=== PATIENT | male | born 1995 | race Caucasian/White ===

== ENCOUNTER 2017-12-21 15:22 | Emergency (ER) | payer BC, OTHER ==
[2017-12-21 15:36] VITALS: TEMP 98.3
[2017-12-21] MEDS ORDERED: METOCLOPRAMIDE 5 MG/ML 2 ML VIAL IVP STA (16:29)
[2017-12-21] MEDS ORDERED: SODIUM CHLORIDE 0.9% 1,000 ML IV STA (16:29)
[2017-12-21] MEDS ORDERED: PANTOPRAZOLE 40 MG/10 ML VIAL IVP STA (16:29)
--- NOTE | 2017-12-21 16:32 | ED ---
Abdominal Pain HPI - General Chief Complaint: Abdominal Pain Stated Complaint: Vomiting Time Seen by Provider: 12/21/17 16:26 Source: patient, RN notes reviewed Mode of arrival: ambulatory Limitations: no limitations - History of Present Illness Initial Comments: 22-year-old male presents emergency Department chief complaint of abdominal discomfort. Patient states has been present for last 1 week with burning in his upper abdomen and chest. Patient states that he cannot eat because symptoms worsen. Patient admits to some nausea no vomiting no diarrhea no constipation he has no dysuria no hematuria. Patient does not take anything for acid reflux his had not history of GERD. Patient denies any fever, chills, back pain. Patient states that he's had no other associated symptoms or complaints. - Related Data Previous Rx's Medication Instructions Recorded Ibuprofen [Motrin] 600 mg PO Q8HR PRN #30 tab 11/16/15 Omeprazole 40 mg PO DAILY #14 capsule. 12/21/17 Allergies Allergy/AdvReac Type Severity Reaction Status Date / Time No Known Allergies Allergy Verified 12/21/17 15:36 Review of Systems ROS Statement: Those systems with pertinent positive or pertinent negative responses have been documented in the HPI. ROS Other: All systems not noted in ROS Statement are negative. Past Medical History Past Medical History: Asthma History of Any Multi-Drug Resistant Organisms: None Reported Additional Past Surgical History / Comment(s): cleft lip repair, nose Past Psychological History: No Psychological Hx Reported Smoking Status: Current every day smoker Past Alcohol Use History: None Reported Past Drug Use History: None Reported General Exam Limitations: no limitations General appearance: alert, in no apparent distress Head exam: Present: atraumatic, normocephalic, normal inspection Neck exam: Present: normal inspection. Absent: tenderness, meningismus, lymphadenopathy Respiratory exam: Present: normal lung sounds bilaterally. Absent: respiratory distress, wheezes, rales, rhonchi, stridor Cardiovascular Exam: Present: regular rate, normal rhythm, normal heart sounds. Absent: systolic murmur, diastolic murmur, rubs, gallop, clicks GI/Abdominal exam: Present: soft, tenderness (Minimal epigastric), normal bowel sounds. Absent: distended, guarding, rebound, rigid Back exam: Absent: CVA tenderness (R), CVA tenderness (L) Skin exam: Present: warm, dry, intact, normal color. Absent: rash Course Vital Signs 12/21/17 15:33 Temperature 98.3 F Pulse Rate 89 Respiratory 18 Rate Blood Pressure 145/94 O2 Sat by Pulse 98 Oximetry Medical Decision Making - Medical Decision Making 22-year-old male present emergency department for abdominal discomfort, burning sensation. Patient had lab work, ultrasound shows unremarkable. Did have some improvement after GI cocktail. Patient also has underlying gastritis and was started on omeprazole 40 mg once daily and will follow-up with PCP for recheck. Return parameters were discussed. - Lab Data Result diagrams: 12/21/17 17:00 12/21/17 17:00 Lab Results 12/21/17 12/21/17 12/21/17 Range/Units 17:00 17:00 17:00 WBC 7.1 (4.0-11.0) k/uL RBC 5.01 (4.30-5.90) m/uL Hgb 15.1 (13.0-17.5) gm/dL Hct 43.7 (39.0-53.0) % MCV 87.2 (80.0-100.0) fL MCH 30.2 (25.0-35.0) pg MCHC 34.6 (31.0-37.0) g/dL RDW 12.1 (11.5-15.5) % Plt Count 233 (150-450) k/uL Neutrophils % 53 % Lymphocytes % 36 % Monocytes % 6 % Eosinophils % 2 % Basophils % 1 % Neutrophils # 3.7 (1.3-7.7) k/uL Lymphocytes # 2.6 (1.0-4.8) k/uL Monocytes # 0.4 (0-1.0) k/uL Eosinophils # 0.2 (0-0.7) k/uL Basophils # 0.0 (0-0.2) k/uL Sodium 140 (137-145) mmol/L Potassium 4.3 (3.5-5.1) mmol/L Chloride 105 (98-107) mmol/L Carbon Dioxide 24 (22-30) mmol/L Anion Gap 11 mmol/L BUN 14 (9-20) mg/dL Creatinine 0.82 (0.66-1.25) mg/dL Est GFR (CKD-EPI)AfAm >90 (>60 ml/min/1.73 sqM) Est GFR (CKD-EPI)NonAf >90 (>60 ml/min/1.73 sqM) Glucose 116 H (74-99) mg/dL Calcium 9.8 (8.4-10.2) mg/dL Total Bilirubin 0.6 (0.2-1.3) mg/dL AST 25 (17-59) U/L ALT 21 (21-72) U/L Alkaline Phosphatase 91 (38-126) U/L Total Protein 7.4 (6.3-8.2) g/dL Albumin 4.6 (3.5-5.0) g/dL Amylase 50 (30-110) U/L Lipase 103 (23-300) U/L Urine Color Light Yellow Urine Appearance Clear (Clear) Urine pH 6.5 (5.0-8.0) Ur Specific [place] 1.008 (1.001-1.035) Urine Protein Negative (Negative) Urine Glucose (UA) Negative (Negative) Urine Ketones Negative (Negative) Urine Blood Negative (Negative) Urine Nitrite Negative (Negative) Urine Bilirubin Negative (Negative) Urine Urobilinogen 2.0 (<2.0) mg/dL Ur Leukocyte Esterase Negative (Negative) Disposition Clinical Impression: Abdominal pain, Gastritis, GERD (gastroesophageal reflux disease) Disposition: HOME SELF-CARE Condition: Stable Instructions: Gastritis (ED) Additional Instructions: Please return to the Emergency Department if symptoms worsen or any other concerns. Prescriptions: Omeprazole 40 mg PO DAILY #14 capsule.dr Is patient prescribed a controlled substance at d/c from ED?: No Referrals: Sierra Villeda MD [Primary Care Provider] - 1-2 days Time of Disposition: 17:55
[2017-12-21 17:17] LABS: Appearance,Urine Clear (Clear); Basophils % (A) 1 %; Bilirubin,Urine Negative (Negative); Blood,Urine Negative (Negative); Color,Urine Light Yellow; Eosinophils # (A) 0.2 k/uL (0-0.7); Eosinophils % (A) 2 %; Glucose,Urine (UA) Negative (Negative); HCT 43.7 % (39.0-53.0); HGB 15.1 gm/dL (13.0-17.5); Ketones,Urine Negative (Negative); Leukocyte Esterase,Urine Negative (Negative); Lymphocytes # (A) 2.6 k/uL (1.0-4.8); Lymphocytes % (A) 36 %; MCH 30.2 pg (25.0-35.0); MCHC 34.6 g/dL (31.0-37.0); MCV 87.2 fL (80.0-100.0); Mean Platelet Volume 7.9; Monocytes # (A) 0.4 k/uL (0-1.0); Monocytes % (A) 6 %; Neutrophils # (A) 3.7 k/uL (1.3-7.7); Neutrophils % (A) 53 %; Nitrite,Urine Negative (Negative); PH, Urine 6.5 (5.0-8.0); Platelet Count 233 k/uL (150-450); Protein,Urine Negative (Negative); RBC 5.01 m/uL (4.30-5.90); RDW 12.1 % (11.5-15.5); Specific Gravity,Urine 1.008 (1.001-1.035); WBC 7.1 k/uL (4.0-11.0)
[2017-12-21 17:28] LABS: ALT 21 U/L (21-72); AST 25 U/L (17-59); Albumin 4.6 g/dL (3.5-5.0); Alkaline Phosphatase 91 U/L (38-126); Amylase 50 U/L (30-110); Anion Gap 11 mmol/L; Blood Urea Nitrogen 14 mg/dL (9-20); Calcium 9.8 mg/dL (8.4-10.2); Carbon Dioxide 24 mmol/L (22-30); Chloride 105 mmol/L (98-107); Glucose 116 mg/dL (74-99); Lipase 103 U/L (23-300); Potassium 4.3 mmol/L (3.5-5.1); Sodium 140 mmol/L (137-145); Total Bilirubin 0.6 mg/dL (0.2-1.3); Total Protein 7.4 g/dL (6.3-8.2)
[2017-12-21] MEDS ORDERED: MAG HYDROX/AL HYDROX/SIMETH 30 ML, HYOSCYAMINE ELIXIR 10 ML, CIMETIDINE HCL 300 MG PO STA ×3 (17:36)
--- NOTE | 2017-12-21 17:51 | US ---
EXAMINATION TYPE: US gallbladder DATE OF EXAM: 12/21/2017 COMPARISON: CT 2016 CLINICAL HISTORY: Pain. burning sensation in abdomen EXAM MEASUREMENTS: Liver Length: 11.0 cm Gallbladder Wall: 0.2 cm CBD: 0.3 cm Right Kidney: 11.4 x 3.5 x 4.5 cm Pancreas: visualized portions wnl, partially obscured by bowel gas Liver: wnl Gallbladder: no stones see, appears contracted, wall not thickened Evidence for sonographic Grullon's sign: No CBD: wnl Right Kidney: No hydronephrosis or masses seen IMPRESSION: 1. Normal right upper quadrant abdomen ultrasound as visualized.
[2017-12-21 18:10] VITALS: BP 129/83; PULSE 86; RESP 16
== END 2017-12-21 18:15 | disposition home or self-care (01) ==
LOC: EC 15:22
DX: K21.9 Gastro-esophageal reflux disease without esophagitis (principal); K29.70 Gastritis, unspecified, without bleeding; F17.200 Nicotine dependence, unspecified, uncomplicated
CPT/HCPCS: 36415; 80053; 82150; 83690; 85025; 81003; 76705; 99284; 96374; 96375; J2765; C9113

== ENCOUNTER 2019-08-30 22:18 | Emergency (ER) | payer BC, OTHER ==
--- NOTE | 2019-08-30 22:42 | ED ---
Chest Pain HPI - General Chief Complaint: Chest Pain Stated Complaint: Chest pain Time Seen by Provider: 08/30/19 22:29 Source: patient Mode of arrival: ambulatory Limitations: no limitations - History of Present Illness Initial Comments: Patient is a 24-year-old male presenting to emergency Department with a chief complaint of chest pain. Starting early this morning after he woke up from sleep. This is mostly midsternal chest pain with some left-sided radiation and to the left upper extremity. Chest pain is reproducible with palpation and is exacerbated with full inspiration. He does report shortness of breath because he does not want to take full breaths due to the pain. Lungs are clear to auscultation. Heart is RRR. Chest x-ray is unremarkable. EKG shows sinus tachycardia. Patient is PERC +. D-dimer is negative. Patient appears to have atypical chest pain. Return parameters were thoroughly discussed patient was understanding and agreeable. Case discussed with physician. - Related Data Previous Rx's Medication Instructions Recorded Ibuprofen [Motrin] 600 mg PO Q8HR PRN #30 tab 11/16/15 Omeprazole 40 mg PO DAILY #14 capsule. 12/21/17 Allergies Allergy/AdvReac Type Severity Reaction Status Date / Time No Known Allergies Allergy Verified 08/30/19 22:27 Review of Systems ROS Statement: Those systems with pertinent positive or pertinent negative responses have been documented in the HPI. ROS Other: All systems not noted in ROS Statement are negative. EKG Findings - EKG Comments: EKG Findings:: Sinus tachycardia. Ventricular rate 117, SD 140, QRS 90, QTC 432. Past Medical History Past Medical History: Asthma History of Any Multi-Drug Resistant Organisms: None Reported Additional Past Surgical History / Comment(s): cleft lip repair, nose Past Psychological History: No Psychological Hx Reported Smoking Status: Current every day smoker Past Alcohol Use History: Occasional Past Drug Use History: None Reported General Exam Limitations: no limitations Course Vital Signs 08/30/19 22:23 Temperature 98.8 F Pulse Rate 122 H Respiratory 22 Rate Blood Pressure 131/80 O2 Sat by Pulse 99 Oximetry Disposition Clinical Impression: Atypical chest pain Disposition: HOME SELF-CARE Condition: Stable Instructions (If sedation given, give patient instructions): Costochondritis (ED) Additional Instructions: Follow up with your primary care. Please return to Emergency Department is symptoms worsen. Is patient prescribed a controlled substance at d/c from ED?: No Referrals: None,Stated [Primary Care Provider] - 1-2 days Time of Disposition: 00:24
--- NOTE | 2019-08-30 23:37 | XR ---
EXAMINATION TYPE: XR chest 2V DATE OF EXAM: 08/30/2019 COMPARISON: 02/25/2015 HISTORY: Asthma. Short of breath TECHNIQUE: FINDINGS: Heart and mediastinum are normal. Lungs are clear. Diaphragm is normal. Bony thorax appears normal. Pulmonary vascularity is normal. IMPRESSION: Normal chest.
[2019-08-31] MEDS ORDERED: KETOROLAC 30 MG/ML 1 ML VIAL IM STA (00:30)
[2019-08-31] MEDS ORDERED: KETOROLAC 30 MG/ML 1 ML VIAL IVP STA (00:32)
[2019-08-31 00:44] VITALS: BP 119/80; PULSE 71; RESP 17; TEMP 98.1
== END 2019-08-31 00:44 | disposition home or self-care (01) ==
LOC: EC 22:18
DX: R07.89 Other chest pain (principal); R06.02 Shortness of breath; R00.0 Tachycardia, unspecified; F17.200 Nicotine dependence, unspecified, uncomplicated
CPT/HCPCS: 99285; 96374; 36415; 93005; 85379; 71046; J1885

== ENCOUNTER 2022-03-24 16:15 | Emergency (ER) | payer OTHER ==
[2022-03-24] MEDS ORDERED: KETOROLAC 15 MG/ML 1 ML VIAL IVP STA (16:50)
--- NOTE | 2022-03-24 16:54 | ED ---
Male Urogenital HPI - General Chief complaint: Urogenital Stated complaint: hernia Time Seen by Provider: 03/24/22 16:20 Source: patient, RN notes reviewed Mode of arrival: ambulatory Limitations: no limitations - History of Present Illness Initial comments: This is a pleasant 26-year-old male who presents from his primary complaining of left testicular pain which is dull in nature. Started this morning when he is lifting at work. Complains of pain to the inferior portion of the testicle. Exacerbated by palpation. No alleviating factors. Patient also sees been urinating more than usual. No hematuria. No radiation. No pain elsewhere. Patient states that he previously has been diagnosed with a left inguinal hernia. He states this occurred 7 years ago. Patient never had this checked out by surgery. Patient previously was seen in the ER for this. No other significant past medical history. No headache, no fever or chills, no changes in vision or hearing, no sore throat or difficulty with speech, no neck pain, no chest pain or shortness of breath, no abdominal pain, no nausea or vomiting, no changes inbowel movements, no numbness or tingling, no extremity pain, no skin rashes or lesions. Past medical, surgical, social, and family history reviewed. MD Complaint: testicle pain - Related Data Previous Rx's Medication Instructions Recorded Ibuprofen [Motrin] 600 mg PO Q8HR PRN #30 tab 11/16/15 Omeprazole 40 mg PO DAILY #14 capsule. 12/21/17 Allergies Allergy/AdvReac Type Severity Reaction Status Date / Time No Known Allergies Allergy Verified 03/24/22 16:36 Review of Systems ROS Statement: Those systems with pertinent positive or pertinent negative responses have been documented in the HPI. ROS Other: All systems not noted in ROS Statement are negative. Past Medical History Past Medical History: Asthma History of Any Multi-Drug Resistant Organisms: None Reported Additional Past Surgical History / Comment(s): cleft lip repair, nose Past Psychological History: No Psychological Hx Reported Smoking Status: Current every day smoker Past Alcohol Use History: Occasional Past Drug Use History: None Reported General Exam - General Exam Comments Initial Comments: Patient does not appear to be ill or toxic. Vital signs stable, patient afebrile Limitations: no limitations General appearance: alert, in no apparent distress Head exam: Present: atraumatic, normocephalic, normal inspection Eye exam: Present: normal appearance, PERRL, EOMI. Absent: scleral icterus, conjunctival injection, periorbital swelling ENT exam: Present: normal exam, mucous membranes moist Neck exam: Present: normal inspection, full ROM. Absent: tenderness, meningismus, lymphadenopathy Respiratory exam: Present: normal lung sounds bilaterally. Absent: respiratory distress, wheezes, rales, rhonchi, stridor Cardiovascular Exam: Present: regular rate, normal rhythm, normal heart sounds. Absent: systolic murmur, diastolic murmur, rubs, gallop, clicks GI/Abdominal exam: Present: soft, normal bowel sounds. Absent: distended, tenderness, guarding, rebound, rigid exam: Present: normal inspection, testicular tenderness (Patient has tenderness to the inferior portion of the left testicle. Cremasteric reflexes intact. No definitive hernia. Tender over the epididymis. No erythema. No break in skin integrity. No rash or lesions. No lymphadenopathy.), vertical testicular lie, circumcision. Absent: urethral discharge Extremities exam: Present: normal inspection, full ROM, normal capillary refill. Absent: tenderness, pedal edema, joint swelling, calf tenderness Back exam: Present: normal inspection Neurological exam: Present: alert, oriented X3, CN II-XII intact Psychiatric exam: Present: normal affect, normal mood Skin exam: Present: warm, dry, intact, normal color. Absent: rash Course Vital Signs 03/24/22 16:36 Temperature 97.9 F Pulse Rate 81 Respiratory 16 Rate Blood Pressure 126/78 O2 Sat by Pulse 99 Oximetry - Reevaluation(s) Reevaluation #1: 03/24/22 18:53 Medical record is reviewed Symptoms are unchanged Patient is informed of results and questions answered Patient in no distress Medical Decision Making - Medical Decision Making Differential diagnosis: Epididymitis, testicular torsion, inguinal hernia, ureteral stone with renal colic, orchiditis. Less likely urinary tract infection. Does not appear to be consistent with testicular torsion. We will hernia less likely as there is no evidence of i nguinal hernia on physical examination. Baseline laboratory work including CBC, CMP, urinalysis, scrotal ultrasound ordered. Chest all findings with the patient. Discussed the possibility of occult findings. Discussed need for follow-up with urology. Patient did have bilateral hydroceles. No definitive evidence of infectious process. Did consider antibiotics. However due to the patient's well appearance and no evidence of infectious process such as orchiditis or epididymitis. We'll wi thhold any antibiotics at this time. STD testing pending. With this treatment plan. Patient was told to return to the ER for any signs or symptoms worsen. Told to return immediately if any other problems arise. All questions answered. Treatment plan discussed. Patient in agreement Every effort has been made to ensure accuracy of this dictation. However, due to the limitations of electronic medical records and dictation devices, errors in charting still occur. Cafe Team Member Dr. Yanez - Lab Data Result diagrams: 03/24/22 17:03/24/22 17: Lab Results 03/24/22 03/24/22 03/24/22 Range/Units 17: 17: 17:22 WBC 11.5 H (3.8-10.6) k/uL RBC 4.76 (4.30-5.90) m/uL Hgb 15.1 (13.0-17.5) gm/dL Hct 42.2 (39.0-53.0) % MCV 88.6 (80.0-100.0) fL MCH 31.8 (25.0-35.0) pg MCHC 35.9 (31.0-37.0) g/dL RDW 11.6 (11.5-15.5) % Plt Count 260 (150-450) k/uL MPV 8.4 Neutrophils % 68 % Lymphocytes % 22 % Monocytes % 4 % Eosinophils % 4 % Basophils % 1 % Neutrophils # 7.8 H (1.3-7.7) k/uL Lymphocytes # 2.5 (1.0-4.8) k/uL Monocytes # 0.5 (0-1.0) k/uL Eosinophils # 0.4 (0-0.7) k/uL Basophils # 0.1 (0-0.2) k/uL Sodium 142 (137-145) mmol/L Potassium 4.2 (3.5-5.1) mmol/L Chloride 108 H (98-107) mmol/L Carbon Dioxide 26 (22-30) mmol/L Anion Gap 8 mmol/L BUN 11 (9-20) mg/dL Creatinine 0.80 (0.66-1.25) mg/dL Est GFR (CKD-EPI)AfAm >90 (>60 ml/min/1.73 sqM) Est GFR (CKD-EPI)NonAf >90 (>60 ml/min/1.73 sqM) Glucose 89 (74-99) mg/dL Calcium 9.7 (8.4-10.2) mg/dL Urine Color Colorless Urine Appearance Clear (Clear) Urine pH 6.5 (5.0-8.0) Ur Specific [place] 1.002 (1.001-1.035) Urine Protein Negative (Negative) Urine Glucose (UA) Negative (Negative) Urine Ketones Negative (Negative) Urine Blood Negative (Negative) Urine Nitrite Negative (Negative) Urine Bilirubin Negative (Negative) Urine Urobilinogen <2.0 (<2.0) mg/dL Ur Leukocyte Esterase Negative (Negative) - Radiology Data Radiology results: report reviewed, image reviewed Scrotal ultrasound independently reviewed by me reveals no evidence for acute pathology. I did review the radiology interpretation. Small varicoceles bilaterally. No evidence of testicular torsion. No mention of epididymitis. Disposition Clinical Impression: Hydrocele, bilateral, Left testicular pain Disposition: HOME SELF-CARE Condition: Good Instructions (If sedation given, give patient instructions): Hydrocele (ED), Testicle Pain (ED) Additional Instructions: Follow-up with your regular physician as directed. Return to the ER immediately if any symptoms worsen, new symptoms arise, or any other problems develop. Is patient prescribed a controlled substance at d/c from ED?: No Referrals: Sigrid Anand MD [STAFF PHYSICIAN] - 1-2 days Umesh Martinez MD [STAFF PHYSICIAN] - 03/26/22 Time of Disposition: 18:55
[2022-03-24 17:38] LABS: Basophils # (A) 0.1 k/uL (0-0.2); Basophils % (A) 1 %; Eosinophils # (A) 0.4 k/uL (0-0.7); Eosinophils % (A) 4 %; HCT 42.2 % (39.0-53.0); HGB 15.1 gm/dL (13.0-17.5); Lymphocytes # (A) 2.5 k/uL (1.0-4.8); Lymphocytes % (A) 22 %; MCH 31.8 pg (25.0-35.0); MCHC 35.9 g/dL (31.0-37.0); MCV 88.6 fL (80.0-100.0); Mean Platelet Volume 8.4; Monocytes # (A) 0.5 k/uL (0-1.0); Monocytes % (A) 4 %; Neutrophils # (A) 7.8 k/uL (1.3-7.7); Neutrophils % (A) 68 %; Platelet Count 260 k/uL (150-450); RBC 4.76 m/uL (4.30-5.90); RDW 11.6 % (11.5-15.5); WBC 11.5 k/uL (3.8-10.6)
[2022-03-24 17:40] LABS: Appearance,Urine Clear (Clear); Bilirubin,Urine Negative (Negative); Blood,Urine Negative (Negative); Color,Urine Colorless; Glucose,Urine (UA) Negative (Negative); Ketones,Urine Negative (Negative); Leukocyte Esterase,Urine Negative (Negative); Nitrite,Urine Negative (Negative); PH, Urine 6.5 (5.0-8.0); Protein,Urine Negative (Negative); Specific Gravity,Urine 1.002 (1.001-1.035); Urobilinogen,Urine <2.0 mg/dL (<2.0)
[2022-03-24 17:48] LABS: African American GFR (CKD) >90 (>60 ml/min/1.73 sqM); Anion Gap 8 mmol/L; Blood Urea Nitrogen 11 mg/dL (9-20); Calcium 9.7 mg/dL (8.4-10.2); Carbon Dioxide 26 mmol/L (22-30); Chloride 108 mmol/L (98-107); Glucose 89 mg/dL (74-99); Non-African American GFR(CKD) >90 (>60 ml/min/1.73 sqM); Potassium 4.2 mmol/L (3.5-5.1); Sodium 142 mmol/L (137-145)
--- NOTE | 2022-03-24 18:37 | US ---
EXAMINATION TYPE: US scrotum with doppler. Grayscale and color Doppler Duplex imaging performed of t he scrotum. DATE OF EXAM: 03/24/2022 COMPARISON: Scrotal ultrasound 11/16/2015 CLINICAL HISTORY: lef testicle pain. Left testicle pain. EXAM MEASUREMENTS: TESTICLES: Right Testicle: 5.3 x 3.5 x 2.2 cm Left Testicle: 5.7 x 3.0 x 1.9 cm EPIDIDYMIS HEAD: Right Epididymis: 0.9 x 1.5 x 1.0 cm Left Epididymis: 0.7 x 1.2 x 0.8 cm Doppler performed to assess for testicular vascularity; bilateral color flow and waveforms are seen. There is no evidence for testicular torsion. Presence of hydroceles: No Presence of varicoceles: Prominent vessels are seen bilaterally. Vessels measure 0.31 cm on the righ t and 0.28 cm on the left. IMPRESSION: 1. No evidence for testicular torsion. 2. Small varicoceles bilaterally.
[2022-03-24] MEDS ORDERED: ACETAMINOPHEN TAB 500 MG TAB PO STA (18:52)
[2022-03-24] MEDS ORDERED: ACET/COD 300 MG/30 MG STARTER PACK 6 TAB BTL PO STA (18:54)
[2022-03-24 19:17] VITALS: BP 106/66; PULSE 84; RESP 18; TEMP 98.1
== END 2022-03-24 19:10 | disposition home or self-care (01) ==
LOC: EC 16:15
DX: N43.3 Hydrocele, unspecified (principal); J45.909 Unspecified asthma, uncomplicated; F17.200 Nicotine dependence, unspecified, uncomplicated
CPT/HCPCS: 36415; 80048; 85025; 81003; 87491; 87591; 93975; 76870; 99284; 96374; J1885